=== PATIENT | male | born 1935 | race Two or more races ===

== ENCOUNTER 2020-02-05 08:48 | Emergency (ER) | payer OTHER ==
[~2020-02-05] VITALS: Ht 152.4 cm; Wt 82.6 kg
[2020-02-05] MEDS ORDERED: HUMULIN 70100 UNIT/2 SUBCUTANEO (09:05)
[2020-02-05] MEDS ORDERED: DILTIAZEM 24HR240 MG PO (09:08)
[2020-02-05] MEDS ORDERED: COZAAR100 MG PO (09:08)
[2020-02-05] MEDS ORDERED: LIPITOR40 M1 PO (09:08)
== END 2020-02-05 15:12 | disposition home or self-care (01) ==
LOC: ER 08:48
DX: R10.13 Epigastric pain (principal); Z20.828 Contact with and (suspected) exposure to other viral communicable diseases

== ENCOUNTER 2020-02-19 09:37 | Outpatient (CLI) | payer OTHER ==
[~2020-02-19 09:37] MED LIST: COZAAR100 MG PO; DILTIAZEM 24HR240 MG PO; HUMULIN 70100 UNIT/2 SUBCUTANEO; LIPITOR40 M1 PO
== END 2020-02-19 09:56 ==
LOC: RAD 09:37
PROVIDERS: ATTEND General Practice
DX: K57.90 Diverticulosis of intestine, part unspecified, without perforation or abscess without bleeding (principal); N28.1 Cyst of kidney, acquired; R11.2 Nausea with vomiting, unspecified; R10.816 Epigastric abdominal tenderness; K80.80 Other cholelithiasis without obstruction

== ENCOUNTER 2020-09-08 23:15 | Emergency (ER) | payer OTHER ==
[~2020-09-08] VITALS: Ht 162.6 cm; Wt 82.1 kg
[2020-09-09] MEDS ORDERED: ZOFRAN8 MG PO (04:45)
[2020-09-09] MEDS ORDERED: PEPCID40 MG PO (04:45)
== END 2020-09-09 04:57 | disposition home or self-care (01) ==
LOC: ER 23:15
DX: R11.2 Nausea with vomiting, unspecified (principal); R10.13 Epigastric pain

== ENCOUNTER 2022-04-17 14:00 | Emergency (ER) | payer OTHER ==
[~2022-04-17] VITALS: Ht 175.3 cm; Wt 88.9 kg
[~2022-04-17 14:00] MED LIST changes: +PEPCID40 MG PO; +ZOFRAN8 MG PO
[2022-04-17] MEDS ORDERED: PEPCID AC20 MG PO (16:20)
[2022-04-17] MEDS ORDERED: CLEOCIN HCL300 MG PO (16:20)
== END 2022-04-17 16:25 | disposition home or self-care (01) ==
LOC: ER 14:00
DX: J86.9 Pyothorax without fistula (principal); I10 Essential (primary) hypertension; E11.9 Type 2 diabetes mellitus without complications; Z79.4 Long term (current) use of insulin

== ENCOUNTER 2023-09-17 20:42 | Emergency (ER) | payer OTHER ==
[~2023-09-17] VITALS: Ht 167.6 cm; Wt 59.0 kg
[~2023-09-17 20:42] MED LIST changes: +CLEOCIN HCL300 MG PO; +PEPCID AC20 MG PO
[2023-09-17] MEDS ORDERED: TAMS0.4C (21:01)
[2023-09-17] MEDS ORDERED: NORFLEX100MG PO (23:14)
[2023-09-17] MEDS ORDERED: KETO10TA2 PO (23:14)
== END 2023-09-17 23:58 | disposition home or self-care (01) ==
LOC: ER 20:44
DX: M54.9 Dorsalgia, unspecified (principal); I10 Essential (primary) hypertension; E11.9 Type 2 diabetes mellitus without complications; Z79.4 Long term (current) use of insulin